=== PATIENT | female | born 1940 | race Caucasian/White ===

== ENCOUNTER → 2016-08-02 | Outpatient (CLI) | payer OTHER ==
--- NOTE | 2016-08-02 09:57 | REPMRS ---
Patient History The patient states she has not had a clinical breast exam in over a year. Patient is postmenopausal. Family history of breast cancer in 5 maternal cousins at age 50 or over. Digital Woman Screen Mammo: August 02, 2016 - Exam #: [id number] Bilateral CC and MLO view(s) were taken. Technologist: Susan Hayes, Technologist Prior study comparison: July 22, 2015, digital woman screen mammo performed at [facility] to [facility]. July 10, 2014, digital woman screen mammo performed at [facility] to [facility]. FINDINGS: There are scattered fibroglandular densities. There has been no change in the appearance of the mammogram from the prior studies. There is a mild amount of residual fibroglandular tissue which is fairly symmetric. There is no interval development of dominant mass, architectural distortion, or clustered microcalcification suggestive of malignancy. ASSESSMENT: BI-RADS/ACR category 1 mammogram. Negative. Recommendation Routine screening mammogram in 1 year (for women over age 40). This mammogram was interpreted with the aid of an FDA-approved computer-aided dectection system. Electronically Signed By: Sebastian Mathias MD 08/02/16 0957
== END ==
LOC: M WHC 08:53
PROVIDERS: ATTEND Nurse Practitioner Adult Health
DX: Z12.31 Encounter for screening mammogram for malignant neoplasm of breast (principal)

== ENCOUNTER → 2017-08-25 | Outpatient (CLI) | payer OTHER | LOC: M WHC 09:20 | DX: Z12.31 Encounter for screening mammogram for malignant neoplasm of breast (principal) | CPT/HCPCS: 77067 ==

== ENCOUNTER → 2018-09-13 | Outpatient (CLI) | payer MEDICARE ==
--- NOTE | 2018-09-13 09:47 | REPMRS ---
Patient History The patient states she has not had a clinical breast exam in over a year. Family history of breast cancer at age 50 or over in maternal cousin, breast cancer at age 50 or over in maternal cousin, breast cancer under age 50 in maternal cousin, breast cancer at age 50 or over in maternal cousin, breast cancer at age 50 or over in maternal cousin. 3D TOMOSYNTHESIS WAS PERFORMED. Digital Woman Screen Mammo: September 13, 2018 - Exam #: [id number] Bilateral CC and MLO view(s) were taken. Technologist: Amy Aaron, Technologist Prior study comparison: August 25, 2017, digital woman screen mammo performed at [facility] to [facility]. August 02, 2016, digital woman screen mammo performed at [facility] to [facility]. FINDINGS: There are scattered fibroglandular densities. There has been no change in the appearance of the mammogram from the prior studies. There is a mild amount of residual fibroglandular tissue which is fairly symmetric. There is no interval development of dominant mass, architectural distortion, or clustered microcalcification suggestive of malignancy. Assessment: BI-RADS/ACR category 1 mammogram. Negative Mammogram. Recommendation Routine screening mammogram in 1 year (for women over age 40). This mammogram was interpreted with the aid of an FDA-approved computer-aided dectection system. Electronically Signed By: Sebastian Mathias MD 09/13/18 0947
== END ==
LOC: M WHC 08:09
PROVIDERS: ATTEND Nurse Practitioner Adult Health
DX: Z12.31 Encounter for screening mammogram for malignant neoplasm of breast (principal); Z80.3 Family history of malignant neoplasm of breast

== ENCOUNTER → 2019-06-28 | Outpatient (REF) | payer MEDICARE | LOC: M LAB REF 06-27 16:45 | PROVIDERS: ATTEND Nurse Practitioner Adult Health | DX: E83.52 Hypercalcemia (principal) ==

== ENCOUNTER → 2020-04-29 | Outpatient (CLI) | payer MEDICARE ==
--- NOTE | 2020-04-29 16:29 | REPMRS ---
Patient History The patient states she has not had a clinical breast exam in over a year. Family history of breast cancer at age 50 or over in maternal cousin, breast cancer at age 50 or over in maternal cousin, breast cancer under age 50 in maternal cousin, breast cancer at age 50 or over in maternal cousin, breast cancer at age 50 or over in maternal cousin. Digital Woman Screen Mammo: April 29, 2020 - Exam #: [id number] Bilateral CC and MLO view(s) were taken. Technologist: Berenice Prasad, Technologist Prior study comparison: September 13, 2018, bilateral digital woman screen mammo performed at [facility]. August 25, 2017, digital woman screen mammo performed at [facility]. August 02, 2016, digital woman screen mammo performed at [facility]. FINDINGS: There are scattered fibroglandular densities. The Volpara volumetric breast density category is:B. There has been no change in the appearance of the mammogram from the prior studies. There is a mild amount of scattered fibroglandular density which is fairly symmetric. There is no interval development of dominant mass, architectural distortion, or grouped microcalcification suggestive of malignancy. 3-D tomosynthesis shows no additional findings. Assessment: BI-RADS/ACR category 1 mammogram. Negative Mammogram. Recommendation Routine screening mammogram of both breasts in 1 year (for women over age 40). This patient's Lifetime Breast Cancer Risk is estimated at 2.9 %. This mammogram was interpreted with the aid of an FDA-approved computer-aided dectection system. Electronically Signed By: Brandon Mercado MD 04/29/20 [id number]
== END ==
LOC: M WHC 15:22
PROVIDERS: ATTEND Nurse Practitioner Adult Health
DX: Z12.31 Encounter for screening mammogram for malignant neoplasm of breast (principal); Z80.3 Family history of malignant neoplasm of breast

== ENCOUNTER → 2020-10-10 | Outpatient (CLI) | payer MEDICARE ==
[~2020-10-10] MED LIST: AMLO1TAB24; ATOR1TAB21; CALC500T52 PO; FLAX10002 PO; FOLI400T13 PO; GLIM4TAB5; LISI20TA33; LUTE20CA PO; METF-838 PO; METO1TAB33; PURE500C5 PO; VITA1CAP4 PO
== END ==
LOC: M LABSMTC 08:44
PROVIDERS: ATTEND Anesthesiology
DX: Z01.818 Encounter for other preprocedural examination (principal); Z11.52 Encounter for screening for COVID-19

== ENCOUNTER → 2021-02-25 | Outpatient (CLI) | payer MEDICARE ==
--- NOTE | 2021-02-25 11:19 | REP ---
INDICATION: RIGHT HIP CAMILO. COMPARISON: None. TECHNIQUE: AP and frogleg views of the right hip. FINDINGS: AP and frogleg views of the right hip show mild diffuse osteopenia. Right femoral head is smooth and rounded hip joint space is preserved. There is some superior acetabular spurring consistent with osteoarthritis. Periarticular soft tissues are unremarkable except for vascular calcification. IMPRESSION: Diffuse osteopenia. Mild acetabular osteoarthritic spurring. No acute abnormality. <Electronically signed by Brandon Mercado > 02/25/21 1124
== END ==
LOC: M RAD 10:47
PROVIDERS: ATTEND Nurse Practitioner Adult Health
DX: M16.11 Unilateral primary osteoarthritis, right hip (principal)

== ENCOUNTER → 2021-06-10 | Outpatient (CLI) | payer MEDICARE | LOC: M WHC 08:29 | PROVIDERS: ATTEND Nurse Practitioner Adult Health | DX: Z12.31 Encounter for screening mammogram for malignant neoplasm of breast (principal); Z80.3 Family history of malignant neoplasm of breast ==

== ENCOUNTER → 2022-03-30 | Outpatient (CLI) | payer MEDICARE | LOC: M EKG 08:43 | PROVIDERS: ATTEND Nurse Practitioner Adult Health | DX: R55 Syncope and collapse (principal); R00.0 Tachycardia, unspecified ==

== ENCOUNTER → 2022-04-06 | Outpatient (CLI) | payer MEDICARE | LOC: M CARPUL 07:23 | PROVIDERS: ATTEND Nurse Practitioner Adult Health | DX: R55 Syncope and collapse (principal) ==

== ENCOUNTER → 2022-08-11 | Outpatient (CLI) | payer MEDICARE ==
[~2022-08-11] MED LIST changes: +ASCO500C3 PO; -PURE500C5 PO
== END ==
LOC: M WHC 12:17
PROVIDERS: ATTEND Nurse Practitioner Adult Health
DX: Z12.31 Encounter for screening mammogram for malignant neoplasm of breast (principal)

== ENCOUNTER → 2022-10-11 | Outpatient (REF) | payer MEDICARE | LOC: M LAB REF 12:47 | PROVIDERS: ATTEND Nurse Practitioner Adult Health | DX: E07.9 Disorder of thyroid, unspecified (principal) ==

== ENCOUNTER → 2022-10-31 | Outpatient (CLI) | payer MEDICARE | LOC: M LAB 12:14 → M PLALAB 12:14 | PROVIDERS: ATTEND Internal Medicine Endocrinology, Diabetes & Metabolism | DX: D35.02 Benign neoplasm of left adrenal gland (principal); E04.1 Nontoxic single thyroid nodule ==

== ENCOUNTER → 2022-11-02 | Outpatient (CLI) | payer MEDICARE | LOC: M PLARAD 08:35 | PROVIDERS: ATTEND Nurse Practitioner Adult Health | DX: R91.1 Solitary pulmonary nodule (principal) | CPT/HCPCS: 78815; A9552 ==

== ENCOUNTER → 2023-08-11 | Outpatient (CLI) | payer MEDICARE | LOC: M RAD 12:59 | PROVIDERS: ATTEND Internal Medicine Cardiovascular Disease | DX: R90.89 Other abnormal findings on diagnostic imaging of central nervous system (principal); I65.23 Occlusion and stenosis of bilateral carotid arteries ==

== ENCOUNTER → 2023-08-23 | Outpatient (CLI) | payer MEDICARE | LOC: M PLAIMG 13:22 | PROVIDERS: ATTEND Internal Medicine Cardiovascular Disease | DX: I34.0 Nonrheumatic mitral (valve) insufficiency (principal) ==

== ENCOUNTER → 2023-11-28 | Outpatient (CLI) | payer MEDICARE | LOC: M WUC 12:22 | PROVIDERS: ATTEND Nurse Practitioner Adult Health | DX: M54.59 Other low back pain (principal) ==

== ENCOUNTER → 2024-03-04 | Outpatient (REF) | payer MEDICARE | LOC: M LAB REF 16:47 | PROVIDERS: ATTEND Nurse Practitioner Adult Health | DX: E83.52 Hypercalcemia (principal) ==

== ENCOUNTER 2024-05-28 22:56 | Emergency (ER) | payer MEDICARE ==
[~2024-05-28] VITALS: Ht 162.6 cm; Wt 72.1 kg
[2024-05-29 04:32] VITALS: BP 130/71
[2024-05-29] MEDS: diazePAM 5MG TABLET PO ONE (05:06)
[2024-05-29] MEDS: LIDOCAINE 5% (LIDODERM) PATCH TD ONE (05:06)
[2024-05-29] MEDS: ANEXSIA, NORCO 7.5MG/325MG TABLET(HYDROCODONE/APAP) PO ONE (05:50)
[2024-05-29 06:20] VITALS: O2SAT 96
[2024-05-29 06:23] VITALS: TEMP 98.5
[2024-05-29] MEDS ORDERED: HYDR-3713 PO (06:26)
[2024-05-29] MEDS ORDERED: LIDO5DIS41 TD (06:26)
[2024-05-29] MEDS ORDERED: VALI5TAB PO (06:26)
== END 2024-05-29 06:37 | disposition home or self-care (01) ==
LOC: M ED 22:56
DX: S20.224A Contusion of middle back wall of thorax, initial encounter (principal); S22.41XA Multiple fractures of ribs, right side, initial encounter for closed fracture; Y92.019 Unspecified place in single-family (private) house as the place of occurrence of the external cause; Y93.9 Activity, unspecified; Y99.9 Unspecified external cause status; W10.8XXA Fall (on) (from) other stairs and steps, initial encounter; I10 Essential (primary) hypertension; E78.5 Hyperlipidemia, unspecified; E11.9 Type 2 diabetes mellitus without complications; Z79.1 Long term (current) use of non-steroidal anti-inflammatories (NSAID); Z79.84 Long term (current) use of oral hypoglycemic drugs; Z79.899 Other long term (current) drug therapy

== ENCOUNTER 2024-11-04 11:56 | Emergency (ER) | payer MEDICARE ==
[~2024-11-04] VITALS: Ht 162.6 cm; Wt 71.4 kg
[~2024-11-04 11:56] MED LIST changes: +HYDR-3713 PO; +LIDO1ADH93 TD; +VALI5TAB PO
[2024-11-04 12:02] VITALS: TEMP 97.5
[2024-11-04] MEDS: ACETAMINOPHEN 325 MG TAB PO ONE (14:00)
[2024-11-04 14:40] VITALS: BP 126/61; O2SAT 98
== END 2024-11-04 14:41 | disposition home or self-care (01) ==
LOC: M ED 11:56
DX: S00.93XA Contusion of unspecified part of head, initial encounter (principal); S40.021A Contusion of right upper arm, initial encounter; S40.022A Contusion of left upper arm, initial encounter; Y92.019 Unspecified place in single-family (private) house as the place of occurrence of the external cause; Y93.9 Activity, unspecified; Y99.9 Unspecified external cause status; W01.0XXA Fall on same level from slipping, tripping and stumbling without subsequent striking against object, initial encounter; E11.9 Type 2 diabetes mellitus without complications; I10 Essential (primary) hypertension; Z79.1 Long term (current) use of non-steroidal anti-inflammatories (NSAID); Z79.84 Long term (current) use of oral hypoglycemic drugs; Z79.899 Other long term (current) drug therapy

== ENCOUNTER → 2025-01-30 | Outpatient (CLI) | payer MEDICARE | LOC: M WUC 11:05 | PROVIDERS: ATTEND Nurse Practitioner Adult Health | DX: M25.552 Pain in left hip (principal); M16.12 Unilateral primary osteoarthritis, left hip ==

== ENCOUNTER → 2025-05-14 | Outpatient (CLI) | payer MEDICARE | LOC: M CARPUL 13:46 | PROVIDERS: ATTEND Internal Medicine Cardiovascular Disease | DX: I08.0 Rheumatic disorders of both mitral and aortic valves (principal); G47.33 Obstructive sleep apnea (adult) (pediatric) ==

== ENCOUNTER → 2025-06-07 | Outpatient (CLI) | payer MEDICARE | LOC: M EKG 10:03 | PROVIDERS: ATTEND Nurse Practitioner Family | DX: I45.2 Bifascicular block (principal) ==